=== PATIENT | male | born 1955 | race African-American/Black ===

== ENCOUNTER 2017-01-26 01:16 | Emergency (ER) | payer MEDICAID ==
[~2017-01-26] VITALS: Ht 172.7 cm; Wt 104.0 kg
[2017-01-26] MEDS ORDERED: DiphenhydrAMINE HCL 25 MG CAPSULE PO ONE (03:45)
[2017-01-26 04:23] VITALS: BP 133/91
== END 2017-01-26 04:24 | disposition home or self-care (01) ==
LOC: EMS 01:17
DX: B35.3 Tinea pedis (principal); R60.0 Localized edema; F17.210 Nicotine dependence, cigarettes, uncomplicated
CPT/HCPCS: 99283